=== PATIENT | male | born 2005 | race Caucasian/White ===

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

== ENCOUNTER 2024-12-23 17:24 | Emergency (ER) | payer BC, OTHER ==
[2024-12-23] MEDS: Naloxone 2 MG in Sodium Chloride 0.9% 500 ML IV SCH (17:51)
[2024-12-23 17:53] LABS: BASOPHILS PERCENT AUTO 0.6 % (0.0-1.0); HEMATOCRIT 42.3 % (40.0-54.0); HEMOGLOBIN 14.8 g/dL (14.0-18.0); LYMPHOCYTES PERCENT AUTO 24.9 % (20.5-50.1); MEAN CORPUSCULAR HEMOGLOBIN 30.1 pg (27.0-34.0); MONOCYTES PERCENT AUTO 9.1 % (2-8); NEUTROPHILS PERCENT AUTO 62.4 % (42.2-75.2); PLATELET COUNT,PLT 271 10^3/uL (150-450); RED BLOOD CELL COUNT 4.92 10^6/uL (4.6-6.2); WHITE BLOOD CELL COUNT,WBC 7.9 10^3/uL (5.0-10.0)
[2024-12-23 17:55] LABS: APPEARANCE,URINE CLEAR (CLEAR); BILIRUBIN,URINE NEGATIVE (NEGATIVE); COLOR,URINE YELLOW (YELLOW); GLUCOSE,URINE NEGATIVE (NEGATIVE); KETONES,URINE NEGATIVE (NEGATIVE); LEUKOCYTE ESTERASE,URINE NEGATIVE (NEGATIVE); NITRITE,URINE NEGATIVE (NEGATIVE); OCCULT BLOOD,URINE NEGATIVE (NEGATIVE); PH,URINE 6.5 (5.0-9.0); PROTEIN,URINE NEGATIVE (NEGATIVE); UROBILINOGEN,URINE 0.2 mg/dL (0.2-1.0)
[2024-12-23 18:01] LABS: O2 DELIVERY DEVICE ROOM AIR
[2024-12-23 18:02] LABS: BICARBONATE,ARTERIAL 25.2 mmol/L (22-26); O2 SATURATION ARTERIAL 99 % (95-100); PCO2 ARTERIAL 46 mmHg (35-45); PH,ARTERIAL 7.36 (7.35-7.45); PO2 ARTERIAL 163 mmHg (70-100)
[2024-12-23 18:03] LABS: ALLEN TEST POSITIVE
[2024-12-23 18:04] LABS: AMPHETAMINES,URINE POSITIVE (NEGATIVE); BARBITURATES,URINE NEGATIVE (NEGATIVE); BENZODIAZEPINE,URINE NEGATIVE (NEGATIVE); MDMA (ECSTASY), URINE NEGATIVE (NEGATIVE); METHADONE,URINE NEGATIVE (NEGATIVE); METHAMPHETAMINES,URINE NEGATIVE (NEGATIVE); OPIATES,URINE NEGATIVE (NEGATIVE); OXYCODONE,URINE NEGATIVE (NEGATIVE); PHENCYCLIDINE,URINE NEGATIVE (NEGATIVE); TCA,URINE NEGATIVE (NEGATIVE)
[2024-12-23 18:13] LABS: INR 0.9 (0.9-1.2); PROTHROMBIN TIME 9.8 SEC (9.0-12.0); PTT,PARTIAL THROMBOPLSTIN TIME 25.5 SEC (22.0-34.0)
[2024-12-23 18:29] LABS: ALANINE AMINOTRANSFERASE,ALT 31 U/L (16-63); ALBUMIN 3.5 g/dL (3.4-5.0); ALKALINE PHOSPHATASE 74 U/L (46-116); ANION GAP 12.8 mEq/L (7-13); ASPARTATE AMNIOTRANSFERASE,AST 17 U/L (15-37); BILIRUBIN TOTAL 0.4 mg/dL (0.2-1.0); BLOOD UREA NITROGEN,BUN 11 mg/dL (7-18); BUN/CREATININE RATIO 11.8 (No establ ref range); CALCIUM 8.8 mg/dL (8.5-10.1); CARBON DIOXIDE,CO2 27 mmol/L (21-32); CHLORIDE,CL 103 mmol/L (98-107); CREATININE 0.93 mg/dL (0.70-1.30); GLUCOSE RANDOM 138 mg/dL (70-99); MAGNESIUM 2.2 mg/dL (1.8-2.4); POTASSIUM,K 3.8 mmol/L (3.5-5.1); PROTEIN TOTAL,TP 6.9 g/dL (6.4-8.2); SODIUM,NA 139 mmol/L (136-145)
[2024-12-23 18:30] LABS: ESTIMATED GFR 121 mL/min (>=60); LACTIC ACID 3.1 mmol/L (0.4-2.0)
[2024-12-23 18:31] LABS: ETHANOL BLOOD MEDICAL 423 mg/dL (0)
[2024-12-23] MEDS: Iopamidol 612 MG/ML 100 ML Bottle IVPUSH ONE (18:33)
[2024-12-23] MEDS: SODIUM CHLORIDE 0.9% IV ONE (19:08)
[2024-12-23] MEDS: THIAMINE IV ONE (19:08)
[2024-12-23 19:12] LABS: TSH ULTRASENSITIVE 1.01 uIU/mL (0.36-3.74)
[2024-12-23 19:41] VITALS: BP 127/77; PULSE 101
[2024-12-23] MEDS: levETIRAcetam in NaCl (iso-os) 1,000 MG in Premix Bag 1 BAG IV ONE (19:48)
[2024-12-24] MEDS: levETIRAcetam in NaCl (iso-os) 100 ML ONE (12:44)
[2024-12-24] MEDS: Naloxone 2 MG/2 ML Syringe ONE (12:44)
[2024-12-26 10:46] LABS: KEPPRA <2 ug/mL (10-40)
== END 2024-12-23 20:09 ==
LOC: DL.ED 17:24
DX: F10.120 Alcohol abuse with intoxication, uncomplicated (principal); F90.9 Attention-deficit hyperactivity disorder, unspecified type; J45.909 Unspecified asthma, uncomplicated; Z88.0 Allergy status to penicillin; Z91.010 Allergy to peanuts; Z91.018 Allergy to other foods; Z79.51 Long term (current) use of inhaled steroids; Y90.9 Presence of alcohol in blood, level not specified
CPT/HCPCS: 36415; 36600; 70470; 71045; 80053; 80143; 80177; 80179; 80305; 80307; 81003; 82375; 82550; 82803; 82947; 83605; 83735; 84443; 84484; 85025; 85610; 85730; 96365; 96367; 96375; 99285; J1953; J2310; J3411; J7040; Q9967